=== PATIENT | female | born 1990 ===

== ENCOUNTER 2018-09-30 08:37 | Emergency (ER) | payer BC ==
--- NOTE | 2018-09-30 10:00 | UC ---
Lower Extremity/Ankle HPI - HPI Summary HPI Summary: 27-year-old female presents with complaints of right foot pain for one week. States she was descending some stairs and caught her toe on the last stair causing a hyperextension injury to the right foot. Complains of pain to the lateral aspect of her dorsal right foot. Pain worsens with weightbearing and extension of the foot. Denies numbness or tingling. - History of Current Complaint Chief Complaint: UCLowerExtremity Stated Complaint: ANKLE INJURY Hx Obtained From: Patient Hx Last Menstrual Period: 09/23/18 Pain Intensity: 6 - Allergies/Home Medications Allergies/Adverse Reactions: Allergies Allergy/AdvReac Type Severity Reaction Status Date / Time walnuts Allergy throat Uncoded 09/30/18 08:54 gets itchy Home Medications: Home Medications Sertraline* [Zoloft*] 50 mg PO DAILY 09/30/18 [History Confirmed 09/30/18] PMH/Surg Hx/FS Hx/Imm Hx Previously Healthy: Yes - Denies significant PMH - Surgical History Surgical History: Yes Surgery Procedure, Year, and Place: shoulder right - Family History Known Family History: Positive: Non-Contributory - Social History Occupation: Employed Full-time Lives: Alone Alcohol Use: None Substance Use Type: None Smoking Status (MU): Never Smoked Tobacco Review of Systems All Other Systems Reviewed And Are Negative: Yes Constitutional: Positive: Negative Skin: Positive: Negative Respiratory: Positive: Negative Cardiovascular: Positive: Negative Gastrointestinal: Positive: Negative Genitourinary: Positive: Negative Motor: Negative: Weakness Neurovascular: Negative: Decreased Sensation Musculoskeletal: Positive: Other: - See HPI Neurological: Positive: Negative Is Patient Immunocompromised?: No Physical Exam - Summary Physical Exam Summary: GENERAL APPEARANCE: Well developed, well nourished, alert and cooperative, and appears to be in no acute distress. CARDIAC: Normal S1 and S2. No S3, S4 or murmurs. Rhythm is regular. There is no peripheral edema, cyanosis or pallor. Extremities are warm and well perfused. Capillary refill is less than 2 seconds. Peripheral pulses intact. LUNGS: Clear to auscultation without rales, rhonchi, wheezing or diminished breath sounds. ABDOMEN: Positive bowel sounds. Soft, nondistended, nontender. No guarding or rebound. No masses or hepatosplenomegally. MUSKULOSKELETAL: Normal muscular development. Limping gait. EXTREMITIES: Mild tenderness to the lateral aspect of the dorsal right foot over the proximal fourth and fifth metatarsals. No erythema, ecchymosis, or gross deformity. Circulation and sensation intact. SKIN: Skin normal color, texture and turgor with no lesions or eruptions. Triage Information Reviewed: Yes Vital Signs: Initial Vital Signs Temp 97.6 F 09/30/18 08:51 Pulse 80 09/30/18 08:51 Resp 18 09/30/18 08:51 BP 129/89 09/30/18 08:51 Pulse Ox 100 09/30/18 08:51 Vital Signs Reviewed: Yes Diagnostics - Radiology No standard instances Radiology Interpretation Completed By: Radiologist Summary of Radiographic Findings: Order Information: FOOT RIGHT 3+ VWS. Accession Number: [id number]. CPT: 80063. HISTORY: pain s/p hyperextension injury . COMPARISONS: None relevant available at the time of dictation. VIEWS : 3, Frontal, lateral, and oblique views of the right foot. FINDINGS: BONE DENSITY: Normal. BONES: There is no displaced fracture. JOINTS: There is no arthropathy. ALIGNMENT: There is no dislocation. SOFT TISSUES: Unremarkable. OTHER FINDINGS: None. IMPRESSION: NO ACUTE OSSEOUS INJURY. IF SYMPTOMS PERSIST , RECOMMEND REPEAT IMAGING. Lower Extremity Course/Dx - Course Course Of Treatment: 27-year-old female presents with complaints of right foot pain for one week. States she was descending some stairs and caught her toe on the last stair causing a hyperextension injury to the right foot. Complains of pain to the lateral aspect of her dorsal right foot. Pain worsens with weightbearing and extension of the foot. Denies numbness or tingling. Afebrile. Vital signs stable. Exam was remarkable for some mild tenderness to the lateral aspect of the dorsal right foot over the proximal fourth and fifth metatarsals. No erythema, ecchymosis, or gross deformity. Circulation and sensation intact. X- ray showed no acute fracture. Recommend conservative treatment for a right foot sprain including postop shoe, RICE, and [id number] analgesics. She is to follow-up with her primary care provider in 7 days if symptoms do not improve. Anticipatory guidance and warning symptoms were reviewed with the patient. Verbalizes understanding and agrees with plan of care. - Differential Dx/Diagnosis Differential Diagnosis/HQI/PQRI: Contusion, Fracture (Closed), Sprain Provider Diagnosis: Right foot sprain Discharge - Sign-Out/Discharge Documenting (check all that apply): Patient Departure All imaging exams completed and their final reports reviewed: Yes - Discharge Plan Condition: Stable Disposition: HOME Patient Education Materials: Foot Sprain (ED) Referrals: Staci Cummins MD [Primary Care Provider] - 7 Days (If no improvement.) Additional Instructions: The x-ray of your foot performed in the clinic today showed no evidence of fracture. I suspect that you sprained the foot. Rest the foot as much as possible. You may walk and bear weight as tolerated. Use the post-op shoe that was provided to you until you are pain free. Apply ice to the affected area for 15-20 minutes at least 4 times a day for next few days to help with pain and swelling. Keep the foot elevated to help reduce swelling. Use an over the counter pain medication such as acetaminophen (Tylenol), ibuprofen (Advil, Motrin), or naproxen (Aleve) according to directions as needed for pain. Follow up with your primary care provider in 7 days if no improvement. - Billing Disposition and Condition Condition: STABLE Disposition: Home
== END 2018-09-30 10:35 | disposition home or self-care (01) ==
LOC: UCEAST 08:37
DX: S93.601A Unspecified sprain of right foot, initial encounter (principal); Z91.018 Allergy to other foods; X50.0XXA Overexertion from strenuous movement or load, initial encounter; Y92.9 Unspecified place or not applicable
CPT/HCPCS: 99202; G0463

== ENCOUNTER 2018-10-26 14:18 | Emergency (ER) | payer BC ==
--- NOTE | 2018-10-26 14:22 | UC ---
Ear Complaint HPI - HPI Summary HPI Summary: 27 yo female presents with LEFT ear pain for the last 2-3 days with muffled hearing. She tells me that over the last 5 or so days has had some sinus congestion and sneezing. Has been taking sudafed with little relief. Over the last few days has been noticing left ear pain. Denies fever, chills, sore throat , cough, or drainage from the ear. - History of Current Complaint Stated Complaint: EAR PAIN Time Seen by Provider: 10/26/18 14:21 Hx Obtained From: Patient Hx Last Menstrual Period: 09/23/18 Onset/Duration: Gradual Onset Severity Initially: Mild Severity Currently: Moderate Pain Intensity: 6 Pain Scale Used: 0-10 Numeric - Allergies/Home Medications Allergies/Adverse Reactions: Allergies Allergy/AdvReac Type Severity Reaction Status Date / Time walnuts Allergy throat Uncoded 09/30/18 08:54 gets itchy PMH/Surg Hx/FS Hx/Imm Hx Psychological History: Anxiety, Depression - Surgical History Surgical History: Yes Surgery Procedure, Year, and Place: shoulder right - Family History Known Family History: Positive: Non-Contributory - Social History Lives: With Family Alcohol Use: None Substance Use Type: None Smoking Status (MU): Never Smoked Tobacco Review of Systems All Other Systems Reviewed And Are Negative: Yes Constitutional: Positive: Negative Skin: Positive: Negative Eyes: Positive: Negative ENT: Positive: Ear Ache, Sinus Congestion Respiratory: Positive: Negative Cardiovascular: Positive: Negative Gastrointestinal: Positive: Negative Neurological: Positive: Negative Psychological: Positive: Negative Physical Exam - Summary Physical Exam Summary: GENERAL: NAD. WDWN. No pain distress. SKIN: No rashes, sores, lesions, or open wounds. HEENT: Head: AT/NC Eyes: EOM intact. Conjunctiva clear without inflammation or discharge. Ears: Hearing grossly normal. TMs intact, no bulging, erythema, or edema. LEFT EAR: Canal with mild erythema and edema and moderate white discharge. Nose: Nasal mucosa pink and moist. NTTP maxillary and frontal sinus. Throat: Posterior oropharynx without exudates, erythema, or tonsillar enlargement. Uvula midline. NECK: Supple. Nontender. No lymphadenopathy. CHEST: CTAB. No r/r/w. No accessory muscle use. Breathing comfortably and in no distress. CV: RRR. Without m/r/g. Pulses intact. Cap refill <2seconds NEURO: Alert. PSYCH: Age appropriate behavior. Triage Information Reviewed: Yes Vital Signs: Vital Signs: Temp Pulse Resp BP Pulse Ox 98.3 F 80 18 121/88 97 10/26/18 14:26 10/26/18 14:26 10/26/18 14:26 10/26/18 14:26 10/26/18 14:26 Vital Signs Reviewed: Yes Ear Complaint Course/Dx - Course Course Of Treatment: Left otitis externa - Differential Dx/Diagnosis Provider Diagnosis: Otitis externa Discharge - Sign-Out/Discharge Documenting (check all that apply): Patient Departure All imaging exams completed and their final reports reviewed: No Studies - Discharge Plan Condition: Stable Disposition: HOME Prescriptions: Ofloxacin 0.3% (Ear Drop)* [Floxin 0.3% OTIC.MANDY (Ear Drop)] 5 drop LEFT EAR BID #1 btl Patient Education Materials: Otitis Externa (ED) Referrals: Staci Cummins MD [Primary Care Provider] - Additional Instructions: If you develop a fever, shortness of breath, chest pain, new or worsening symptoms - please call your PCP or go to the ED immediately. - Billing Disposition and Condition Condition: STABLE Disposition: Home - Attestation Statements Provider Attestation: I was available for consult. This patient was seen by the [facility]. The patient was not presented to , seen by or examined by ak -Julio Cesar Portillo MD
[2018-10-26 14:27] VITALS: BP 121/88
== END 2018-10-26 14:51 | disposition home or self-care (01) ==
LOC: UCEAST 14:18
DX: H60.92 Unspecified otitis externa, left ear (principal); F41.9 Anxiety disorder, unspecified; F32.9 Major depressive disorder, single episode, unspecified; Z91.018 Allergy to other foods
CPT/HCPCS: 99212; G0463